=== PATIENT | female | born 1955 | race Caucasian/White ===

== ENCOUNTER → 2017-10-25 | Outpatient (CLI) | payer OTHER ==
--- NOTE | 2017-10-25 12:59 | US ---
EXAMINATION TYPE: US thyroid st tissue head/neck DATE OF EXAM: 10/25/2017 COMPARISON: NONE CLINICAL HISTORY: E04.1 Thyroid nodule. Hypothyroidism, on meds, no hx of bx GLAND SIZE: Right Lobe: 4.0 x 1.5 x 1.3 cm Overall Parenchyma: heterogenous Left Lobe: 3.0 x 1.2 x 0.7 cm Overall Parenchyma: heterogeneous Isthmus Thickness: 0.2 cm NODULES RIGHT: # of nodules measured on right: 0 LEFT: # of nodules measured on left: 0 ISTHMUS: # of nodules measured in the isthmus: 0 Bilateral neck scanned, no evidence of lymphadenopathy. Bilateral lobes appear hypoechoic and heterogenous. No prominent nodules seen. Right lobe appears g reater in size compared to left. IMPRESSION: Thyroid gland is overall small in size and heterogeneous in appearance without discrete nodule identi fied.
== END | disposition home or self-care (01) ==
LOC: RADUSWWP 12:12
PROVIDERS: ATTEND Family Medicine
DX: E04.1 Nontoxic single thyroid nodule (principal)
CPT/HCPCS: 76536

== ENCOUNTER → 2017-11-24 | Outpatient (CLI) | payer OTHER ==
--- NOTE | 2017-11-24 12:09 | CONS ---
CONSULTATION DATE OF SERVICE: 11/24/2017 A 62-year-old lady had been evaluated in sleep center for significant amount of movements during the night, some awakenings with dry mouth. HISTORY OF PRESENT ILLNESS/SLEEP WAKE EVALUATION: Patient sleeps by herself so there is no information about her snoring. Her sleep schedule usually from around 1 a.m. until 8:30 or 9 a.m. She does not have TV set in bedroom. Falling asleep well, but again during the night she has significant movements with changing of her position. In the morning, she wakes up tired, falling asleep during the day, has problem with memory, depression, anxiety. [place] Sleepiness Scale is 8. PAST MEDICAL HISTORY: Positive for hypothyroidism, hyperlipidemia, constipation, episodes of vertigo, some episodes of vertigo continues up to one month, restriction of the nasal breathing. Patient opens her mouth during sleep. MEDICATIONS: L-thyroxine, furosemide, simvastatin, potassium supplement, , baby aspirin, Metamucil, vitamin B, vitamin D3. PAST SURGICAL HISTORY: Surgery for ectopic in 1996. SOCIAL HISTORY: Positive for smoking 1 or less than 1 pack a day on and off for 25 years; quit about 20 years ago. Alcohol consumption occasional. FAMILY HISTORY: Heart problems, hyperlipidemia, stroke, cancer, ulcers, diabetes, thyroid problems. REVIEW OF SYSTEMS: Movements at night. Sometimes tiredness and sleepiness during the day. Dryness in the mouth during the sleep. No fevers. No double vision. No recent chest pain. No shortness of breath. No abdominal pain. No bleeding episodes. No blood in urine. No seizure episodes. PHYSICAL EXAM: During physical exam, a 62-year-old lady without distress. VITAL SIGNS: BP 105/72, HR 73, RR 16. Height 5 feet 6-3/4 inches, weight 182, BMI 28.7. Neck is 13-1/2 inches in circumference. Temperature 97.8. Oxygen saturation on room air 92%. HEENT: Nose slightly symmetric. Restriction of nasal breathing, possible nasal septum deviation. Oropharynx moderately to extremely low position of soft palate. NECK: Supple, no JVD. Thyroid is not palpable. LUNGS: Clear to percussion and to auscultation. Good air exchange. No wheezing or rhonchi. HEART: S1, S2 regular. No murmurs, gallops, or rubs. ABDOMEN: Soft and nontender. Bowel sounds are present. No organomegaly appreciated. EXTREMITIES: No clubbing or cyanosis. 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 Cranial nerves 2 to 7 intact. There is no fasciculation or atrophy. noted. No focal deficits observed. IMPRESSION: 1. No information about snoring, patient sleeps by herself. Significant amount of movements at night with dry mouth during the sleep. Patient opens her mouth. Low position of soft palate. Restriction of nasal breathing. Episodes of sleepiness during the day. Obstructive sleep apnea-hypopnea syndrome. 2. Overweight with body mass index 28.7. 3. Hypothyroidism. 4. Hyperlipidemia. 5. Constipation. 6. Episodes of vertigo. 7. Nasal septum deviation and restriction of nasal breathing. 8. History of surgical treatment for ectopic in 1986. PLAN: 1. Polysomnography for evaluation of patient's breathing during sleep. 2. CPAP/BiPAP titration if sleep study confirms obstructive sleep apnea-hypopnea syndrome. 3. Preferable position during sleep on the side. 4. No driving if patient feels any sleepiness. Patient is aware of civil and criminal liability for unsafe driving. 5. I will see patient for follow up visit to explain results of testing and following plan. Thank you very much for referring this patient for consultation. Sincerely, Lux Moreno MD, PhD, FAASM Diplomat of [employer] [facility] [employer] [facility] [place] MMODL / AYAH: [id number] /
== END | disposition home or self-care (01) ==
LOC: SLEEP 10:49
PROVIDERS: ATTEND Internal Medicine
DX: G47.33 Obstructive sleep apnea (adult) (pediatric) (principal); E66.3 Overweight; Z68.28 Body mass index [BMI] 28.0-28.9, adult; E03.9 Hypothyroidism, unspecified; E78.5 Hyperlipidemia, unspecified; K59.00 Constipation, unspecified; R42 Dizziness and giddiness; J34.2 Deviated nasal septum; Z98.890 Other specified postprocedural states; Z87.891 Personal history of nicotine dependence; Z79.899 Other long term (current) drug therapy; Z79.82 Long term (current) use of aspirin
CPT/HCPCS: 99211

== ENCOUNTER → 2017-12-08 | Outpatient (CLI) | payer OTHER ==
--- NOTE | 2017-12-08 11:42 | SFUN ---
SLEEP STUDY FOLLOW UP NOTE DATE OF SERVICE: 12/08/2017 A 62-year-old lady has been followed in the sleep center to discuss results of diagnostic polysomnogram. I discussed results of sleep study with patient in details. Polysomnogram showed mild abnormalities of respiration during the sleep with total apnea-hypopnea index 7.1, but in REM sleep increased to 32.5 with the lowest oxygen level 83.5% and oxygen level totally for the whole night was below normal range for 1.3 minutes. The patient believes she does not feel significantly sleepy at the present time during the day. [place] Sleepiness Scale is 6. She might wake up from sleep, but rarely and mostly it is related to the pain in her shoulder according to her. She prefers not to start treatment with the CPAP at the present time. MEDICATIONS: L-thyroxine, furosemide, simvastatin, potassium supplement, Metamucil. PHYSICAL EXAM: During physical exam, patient in no distress. VITAL SIGNS: BP 100/62, HR 64, RR 16, oxygen saturation room air 97%. Height 5 feet 6 inches, weight 182, BMI 29.6. HEENT: PERRLA, EOMI. Oropharynx moderately low position of soft palate. Neck: Supple, no JVD. Thyroid is not palpable. LUNGS: Clear to percussion and to auscultation. Good air exchange. No wheezing or rhonchi. HEART: S1, S2 regular. No murmurs, gallops, or rubs. ABDOMEN: Soft and nontender. Bowel sounds are present. No organomegaly appreciated. EXTREMITIES: No clubbing or cyanosis. 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 Cranial nerves 2 to 7 intact. There is no fasciculation or atrophy. noted. No focal deficits observed. IMPRESSION: 1. Mild obstructive sleep apnea-hypopnea syndrome. No significant symptoms of sleepiness during the day at the present time. Patient prefers not to have any treatment with CPAP. 2. Hypothyroidism. 3. Hyperlipidemia. 4. Episodes of vertigo. 5. Constipation. 6. Nasal septum deviation. 7. History of surgical treatment for ectopic in 1996. PLAN: 1. Sleep hygiene with regular time in bed for at least 7-1/2 - 8 hours. 2. Losing weight. 3. No driving if feeling any sleepiness. 4. Continue sleep on the side. 5. Followup visit in 1 year. Thank you very much for allowing me to participate in the management of your patient. Sincerely, Lux Moreno MD, PhD, FAASM Diplomat of [employer] [facility] [place] AALIYAH / AYAH: [id number] /
== END | disposition home or self-care (01) ==
LOC: SLEEP 10:19
PROVIDERS: ATTEND Internal Medicine
DX: G47.33 Obstructive sleep apnea (adult) (pediatric) (principal); E78.5 Hyperlipidemia, unspecified; E03.9 Hypothyroidism, unspecified; R42 Dizziness and giddiness; K59.00 Constipation, unspecified; J34.2 Deviated nasal septum; Z98.890 Other specified postprocedural states; Z79.899 Other long term (current) drug therapy

== ENCOUNTER → 2019-09-06 | Outpatient (CLI) | payer OTHER ==
--- NOTE | 2019-09-06 12:22 | CT ---
CT angiogram of the left upper extremity HISTORY: Pain, history of fracture Helical acquisition through the left upper extremity during dynamic administration of 100 cc Isovue-3 70 intravenously. Three-dimensional reconstructions performed on an alternate workstation. Automated exposure control for dose reduction, DLP 1501.4 mGycm. The transverse aorta, left subclavian, brachial, axillary, radial and ulnar arteries are patent, aber rant origin to the radial artery is noted at the level of the mid brachial artery. Proximal vertebral artery on the left is patent. Common carotid artery on the left is patent proximally, innominate art chantel is patent proximally. Internal mammary artery is patent proximally. Proximal left deep femoral doherty perficial femoral, the left common femoral artery, left external iliac artery, internal iliac artery and peripheral common iliac artery on the left are patent. There is no left pleural effusion or definite pericardial effusion. No evident fracture or dislocation. There is some cortical thickening of the distal left humerus whic h may be related to patient's history of remote trauma. Slight angulation is present at the distal hu merus. Arthropathy noted at the acromioclavicular joint. IMPRESSION: Findings compatible with patient's remote history of left humerus fracture.
== END | disposition home or self-care (01) ==
LOC: RADCTMAIN 10:28
PROVIDERS: ATTEND Family Medicine
DX: M79.622 Pain in left upper arm (principal); Z87.81 Personal history of (healed) traumatic fracture; Z88.0 Allergy status to penicillin
CPT/HCPCS: 73206; Q9967